=== PATIENT | female | born 1980 | race Caucasian/White ===

== ENCOUNTER 2020-06-15 14:42 | Emergency (ER) | payer SELFPAY ==
[2020-06-15 15:36] LABS: HEMOGLOBIN 15.1 gm/dl (12.3-15.3); RED BLOOD COUNT 5.14 M/UL (4.00-5.10); WHITE BLOOD COUNT 9.8 K/UL (4.5-11.0)
[2020-06-15 15:55] LABS: BUN/CREATININE RATIO 23 (0-10)
[2020-06-15] MEDS ORDERED: BENTYL 20MG TAB20 MG PO (16:41)
[2020-06-15] MEDS ORDERED: ZOFRAN4 MG PO (16:41)
== END 2020-06-15 17:00 | disposition home or self-care (01) ==
LOC: ER1 14:42
PROVIDERS: Physician Assistant
DX: B34.9 Viral infection, unspecified (principal); Z90.49 Acquired absence of other specified parts of digestive tract; Z20.822 Contact with and (suspected) exposure to COVID-19
CPT/HCPCS: 0240U; 80053; 85025; 96374; 99284; J2405